=== PATIENT | female | born 2000 | race Two or more races ===

== ENCOUNTER 2024-05-22 21:53 | Inpatient (IN) | payer MEDICAID, OTHER ==
[~2024-05-22] VITALS: Ht 152.4 cm; Wt 63.1 kg
--- NOTE | 2024-05-22 22:15 | ED.PDOC ---
GI ASSESSMENT HPI Comments A 24 year old female presents to the ED with a chief complaint of RLQ pain onset today. Patient states she woke up today experiencing RLQ pain as well as nausea, fever. She noticed pain worsens with movement, rates it 9/10. Denies any past medical history as well as headache, chest pain, shortness of breath, vomiting, diarrhea, constipation, dysuria, hematuria. No other symptoms or modifying factors present at this time. Patient was febrile and tachycardic at arrival. Chief Complaint: Abdominal Pain Time Seen by MD: 22:10 Reviewed Notes: Nurses Notes, Medications, Allergies Allergies: Coded Allergies: No Known Drug Allergy (Verified Allergy, Unknown, 05/22/24) Information Source: Patient Mode of Arrival: Ambulatory Timing: Hours Duration: Since onset Prehospital treatment: None Quality: Other Severity: Moderate Recent: None Recent Hx of: None Pain Location: RLQ Modifying Factors: Movement Associated sign and symptoms: Nausea, Abdominal Pain (RLQ), Fever Past Medical History PAST MEDICAL HISTORY: Denies Surgical History: Denies all surgeries AERIAL APPLICATOR PILOT History: No Pertinent AERIAL APPLICATOR PILOT History Family History Family History: Reviewed,noncontributory to illness, No family hx of Cancer, No family hx of DM, No family hx of Heart luna, No family hx of HTN, No family hx ofKidney luna, No family hx of Liver luna, No family hx of Lung luna, No family hx of Stroke Social History Smoker: Non-Smoker Alcohol: Denies ETOH Use Drugs: Denies Drug Use Lives In: Home Constitutional: reports: fever; denies: chills, diaphoresis, fatigue, malaise, sweats, weakness, others EENTM: denies: blurred vision, double vision, ear bleeding, ear discharge, ear drainage, ear pain, ear ringing, eye pain, eye redness, hearing loss, mouth pain, mouth swelling, nasal discharge, nose bleeding, nose congestion, nose pain, photophobia, tearing, throat pain, throat swelling, voice changes, others Respiratory: denies: cough, hemoptysis, orthopnea, SOB at rest, shortness of breath, SOB with excertion, stridor, wheezing, others Cardiovascular: denies: chest pain, dizzy spells, diaphoresis, Dyspnea on exertion, edema, irregular heart beat, left arm pain, lightheadedness, palpitations, PND, syncope, others Gastrointestinal: reports: abdominal pain (RLQ), nausea; denies: abdomen distended, blood streaked bowels, constipated, diarrhea, dysphagia, difficulty swallowing, hematemesis, melena, poor appetite, poor fluid intake, rectal blee ding, rectal pain, vomiting, others Genitourinary: denies: abnormal vagina bleeding, burning, dyspareunia, dysuria, flank pain, frequency, hematuria, incontinence, pain, , vagina discharge, urgency, others Neurological: denies: dizziness, fainting, headache, left sided numbness, left sided weakness, numbness, paresthesia, pre-existing deficit, right sided numbness, right sided weakness, seizure, speech problems, tingling, tremors, weakness, others Musculoskeletal: denies: back pain, gout, joint pain, joint swelling, muscle pain, muscle stiffness, neck pain, others Integumetry: denies: bruises, change in color, change in hair/nails, dryness, laceration, lesions, lumps, rash, wounds, others Allergic/Immunocompromised: denies: Difficulty Healing, Frequent Infections, Hives, Itching, others Hematologic/Lymphatic: denies: anemia, blood clots, easy bleeding, easy bruising, swollen glands, others Endocrine: denies: excessive hunger, excessive sweating, excessive thirst, excessive urination, flushing, intolerance to cold, intolerance to heat, unexplained weight gain, unexplained weight loss, others Psychiatric: denies: anxiety, bipolar disorder, depression, hopeless, panic disorder, schizophrenia, sleepless, suicidal, others All Other Systems: Reviewed and Negative Physical Exam General Appearance: Moderate Distress (Patient moderately ill 24-year-old female.), Normal HEENT: Normal ENT Inspection, Pharynx Normal, TMs Normal Neck: Full Range of Motion, Non-Tender, Normal, Normal Inspection Respiratory: Chest Non-Tender, Lungs Clear, No Accessory Muscle Use, No Respiratory Distress, Normal Breath Sounds Cardiovascular: No Edema, No JVD, No Murmur, No Gallop, Normal Peripheral Pulses, Regular Rate/Rhythm Breast Exam: Deferred Gastrointestinal: Other (Patient displays diffuse right lower quadrant tenderness without definitive rebound. Abdomen was mildly rigid. No signs of trauma.) Genitalia: Deferred Pelvic: Deferred Rectal: Deferred Extremities: No calf tenderness, Normal capillary refill, Normal inspection, Normal range of motion, Non-tender, No pedal edema Neurologic: Alert, public records officer II-XII nml as Tested, No Motor Deficits, Normal Affect, Normal Mood, No Sensory Deficits Cerebellar Function: Normal Reflexes: Normal Skin: Dry, Normal Color, Warm Lymphatic: No Adenopathy Was a procedure done? Was a procedure done?: No GI differential Dx Differential Diagnosis: Threatened , Bowel Obstruction, Cholangitis, Cholecystitis, Gastritis/PUD, Gastroenteritis, Other (Appendicitis) X-Ray, Labs, Meds, VS Vital Signs Date Time Temp Pulse Resp B/P (MAP) Pulse Ox O2 Delivery O2 Flow Rate FiO2 05/22/24 23:15 109 20 109/67 05/22/24 22:45 124 20 116/65 05/22/24 22:30 124 20 98 Room Air 05/22/24 22:30 100.6 124 20 116/65 (82) 98 100.6 05/22/24 22:06 102.3 137 18 119/76 (90) 97 Lab Test 05/22/24 22:26 05/22/24 22:19 Range/Units Urine Color Light-yellow Yellow Urine Clarity Clear Clear Urine pH 7.0 5.0-9.0 Urine Specific [place] 1.022 1.001-1.035 Urine Protein Negative Negative Urine Ketones 1+ H Negative Urine Blood Negative Negative /uL Urine Nitrite Negative Negative Urine Bilirubin Negative Negative Urine Urobilinogen Normal Negative mg/dL Urine Leukocyte Esterase 1+ Negative /uL Urine RBC 2 0 - 4 /hpf Urine WBC 6 0 - 5 /hpf Urine Squamous Epithelial Cells Few <5 /hpf Urine Bacteria None seen None Seen /hpf Urine Glucose Normal Normal mg/dL White Blood Count 21.3 H 4.4-10.8 10^3/uL Red Blood Count 4.49 4.0-5.20 10^6/uL Hemoglobin 14.0 12.2-16.2 g/dL Hematocrit 41.5 36.0-46.0 % Mean Corpuscular Volume 92.5 80.0-100.0 fL Mean Corpuscular Hemoglobin 31.2 28.0-32.0 pg Mean Corpuscular Hemoglobin Concent 33.7 32.0-36.0 g/dL Red Cell Distribution Width 12.5 11.8-14.3 % Platelet Count 254 140-450 10^3/uL Mean Platelet Volume 8.5 6.9-10.8 fL Neutrophils (%) (Auto) 90.1 H 37.0-80.0 % Lymphocytes (%) (Auto) 6.1 L 10.0-50.0 % Monocytes (%) (Auto) 3.6 0.0-12.0 % Eosinophils (%) (Auto) 0.1 0.0-7.0 % Basophils (%) (Auto) 0.1 0.0-2.0 % Neutrophils # (Auto) 19.2 H 1.6-8.6 10 ^3/uL Lymphocytes # (Auto) 1.3 0.4-5.4 10 ^3/uL Monocytes # (Auto) 0.8 0-1.3 10 ^3/uL Eosinophils # (Auto) 0 0-0.8 10 ^3/uL Basophils # (Auto) 0 0-0.2 10 ^3/uL Nucleated Red Blood Cells 0.0 % Sodium Level 139 136-145 mmol/L Potassium Level 3.6 3.5-5.1 mmol/L Chloride Level 105 98-107 mmol/L Carbon Dioxide Level 24 20-31 mmol/L Anion Gap 10 5-15 Blood Urea Nitrogen 10 9-23 mg/dL Creatinine 0.68 0.550-1.02 mg/dL Glomerular Filtration Rate Calc 126 >90 mL/min BUN/Creatinine Ratio 14.7 10.0-20.0 Serum Glucose 110 H 74-106 mg/dL Lactic Acid Level 1.6 0.4-2.0 mmol/L Calcium Level 10.1 8.7-10.4 mg/dL Total Bilirubin 1.3 H 0.2-1.0 mg/dL Aspartate Amino Transferase (AST) 21 13-40 U/L Alanine Aminotransferase (ALT) 18 7-40 U/L Alkaline Phosphatase 82 46-116 U/L Total Protein 7.6 5.7-8.2 g/dL Albumin 4.7 3.2-4.8 g/dL Lipase 29 12-53 U/L Current Medications Medications (Trade) Dose Ordered Sig/Timothy Route Start Time Stop Time Status Last Admin Ondansetron HCl (Zofran Po) 4 mg ONCE ONCE PO 05/22/24 22:15 05/22/24 22:16 DC 05/22/24 22:46 Morphine Sulfate 4 mg ONCE ONCE IM 05/22/24 22:15 05/22/24 22:16 DC 05/22/24 22:45 Nitrofurantoin Macrocrystals (Macrobid) 100 mg ONCE ONCE PO 05/23/24 00:45 05/23/24 00:46 DC 05/23/24 01:[address] [address] Ph: [phone] DIAGNOSTIC IMAGING Diagnostic Imaging Report : [id number] Signed PATIENT: MICHAEL OCAMPONACCT: [id number] UNIT: [id number] : 2000 LOC: ER ROOM / BED: / AGE / SEX: 24 / F ADM STATUS: REG ER SERVICE 11 ORDERING PHYSICIAN: BINTA LAYTON PAC PROCEDURE(s): ABPL - CT AB PEL WO CON-NO ORAL OR IV REASON: Right lower quadrant pain ORDER NUMBER(s): [id number], ACCESSION NUMBER(s): [id number] Exam: CT CT AB PEL WO CON-NO ORAL OR IV History: Right lower quadrant pain Comparison Study: None available at time of dictation. TECHNIQUE: Multidetector CT of the abdomen was performed from lung bases to pubic symphysis. Imaging was performed without IV contrast. Axial, coronal and sagittal multiplanar reformats were obtained from the axial data set by the technologist. Radiation Dose Information: CT Dose: CTDI volume is 5.53 mGy. Dose-length product is 301.99 mGy*cm FINDINGS: Evaluation of solid organs is limited due to lack of intravenous contrast use. Findings: Lung Bases: No acute or significant lung base finding. Normal heart size. No pleural or pericardial effusion. Liver: The liver is normal in size. No focal lesions. Gallbladder and Biliary Tree: Unremarkable Spleen: Unremarkable Pancreas: The pancreas is grossly normal in appearance. Adrenal Glands: Unremarkable Kidneys: Kidneys are grossly normal without calculi or hydronephrosis. Bladder: Grossly unremarkable for degree of distention. Bowel: The stomach is grossly normal in appearance. Small bowel and colon are normal in caliber and distribution. The appendix is not visualized; however, no secondary findings of acute appendicitis identified. Ascites: Absent Lymphadenopathy: No mesenteric, retroperitoneal or periportal lymphadenopathy. Abdominal Wall and Mesentery: Unremarkable. Vasculature: The visualized abdominal aorta is normal in size and caliber. Evaluation of abdominal and pelvic vessels is limited due to lack of intravenous contrast. Pelvic Organs: Unremarkable Musculoskeletal: No aggressive focal bony lesions, acute fractures or dislocation. Soft tissues: Unremarkable IMPRESSION: 1. No calcified gallstones. 2. No nephrolithiasis or hydronephrosis. 3. No free air or free fluid. 4. Appendix not definitively identified. 5. Radiation optimization: All CT scans at this facility use at least one of these dose optimization techniques: automated exposure control mA and/or kV adjustment per patient size (includes targeted exams where dose is matched to clinical indication) or iterative reconstruction. HS:Y ATED BY: TRESA DUBON Jr., DO DICTATED DATE/TIME: 05/23/2420 SIGNED BY: TRESA DUBON Jr., SIGNED DATE/TIME: 05/23/2420 CC: X-Ray, Labs, Meds, VS Comment All studies performed the ED were evaluated by me personally. Serum laboratories [place] [id number]. Urinalysis confirmed what appears to be a UTI, but I am not sure it is the source of the elevated white blood cell count. CT of the abdomen could not visualize the appendix nor could ultrasound. Patient will be admitted for management of her right lower quadrant pain concerns that she may be at the beginning of a developing appendicitis. Time of 1ST Reevaluation: 02:03 Reevaluation 1ST: Improved Consultation: PCP Patient Education/Counseling: Diagnosis, Treatment Family Education/Counseling: Diagnosis, Treatment Additional Information I reviewed the following notes from patient's past medical encounters: The following tests were ordered, and results were reviewed by me: CBC, CMP, LIPASE, UA, LA W/ REFLEX, CT ABD PEL WO CONTRAST I reviewed and agreed with the following test results read by other providers: CT ABD PEL WO CONTRAST I discussed treatment and results with medical personnel and: patient Departure 1 Departure Time of Disposition: 02:04 Impression: Primary Impression: Leukocytosis Additional Impressions: UTI (urinary tract infection) Abdominal pain Disposition: ADMITTED INPATIENT Condition: Stable Discharged With: Self, Relative Critical Care Note Critical Care Time?: No Stability Stability form required: No Heart Score Heart Score: Heart Score Response (Comments) Value History N/A 0 EKG N/A 0 Age N/A 0 Risk Factors N/A 0 Troponin N/A 0 Total 0 I personally scribed for SAMANTHA ALARCON MD ([email or web address]) on 05/22/24 at 22:15. Electronically submitted by Kandi العراقي ([email or web address]). I personally scribed for SAMANTHA ALARCON MD ([email or web address]) on 05/22/24 at 22:17. Electronically submitted by Kandi العراقي ([email or web address]). I personally scribed for SAMANTHA ALARCON MD ([email or web address]) on 05/22/24 at 22:43. Electronically submitted by Kandi العراقي ([email or web address]). I personally scribed for ASMANTHA ALARCON MD ([email or web address]) on 05/22/24 at 22:59. Electronically submitted by Kandi العراقي ([email or web address]). I personally scribed for SAMANTHA ALARCON MD ([email or web address]) on 05/23/24 at 00:20. Electronically submitted by Kandi العراقي ([email or web address]). I personally scribed for SAMANTHA ALARCON MD ([email or web address]) on 05/23/24 at 00:29. Electronically submitted by Kandi العراقي ([email or web address]). SAMANTHA ALARCON MD May 22, 2024 22:15 BINTA LAYTON May 23, 2024 02:05
[2024-05-22 22:27] LABS: Urine Bacteria None Seen /hpf (None Seen)
[2024-05-22 22:38] LABS: Basophils # (auto) 0 10 ^3/uL (0-0.2); Basophils % (auto) 0.1 % (0.0-2.0); Eosinophils # (auto) 0 10 ^3/uL (0-0.8); Eosinophils % (auto) 0.1 % (0.0-7.0); Hematocrit 41.5 % (36.0-46.0); Lymphocytes # (auto) 1.3 10 ^3/uL (0.4-5.4); Lymphocytes % (auto) 6.1 % (10.0-50.0); Mean Corpuscular Hemoglobin 31.2 pg (28.0-32.0); Mean Corpuscular Hgb Conc. 33.7 g/dL (32.0-36.0); Mean Corpuscular Volume 92.5 fL (80.0-100.0); Monocytes # (auto) 0.8 10 ^3/uL (0-1.3); Monocytes % (auto) 3.6 % (0.0-12.0); Neutrophils # (auto) 19.2 10 ^3/uL (1.6-8.6); Neutrophils % (auto) 90.1 % (37.0-80.0); Platelet Count (auto) 254 10^3/uL (140-450); Red Blood Cells 4.49 10^6/uL (4.0-5.20); Red Cell Distribution Width 12.5 % (11.8-14.3); White Blood Cell 21.3 10^3/uL (4.4-10.8)
[2024-05-22 22:39] LABS: Urine Blood Negative /uL (Negative); Urine Clarity Clear (Clear); Urine Color Light-Yellow (Yellow); Urine Protein, UAD Negative (Negative); Urine Specific Gravity 1.022 (1.001-1.035); Urine Squamous Epithelial Cell FEW /hpf (<5); Urine Urobilinogen Normal (Negative); Urine WBC 6 /hpf (0 - 5)
[2024-05-22] MEDS: MORPHINE SULFATE INJ 2 MG/ml SYRG IM ONE (22:45)
[2024-05-22] MEDS: ONDANSETRON ODT 4 MG TAB PO ONE (22:46)
[2024-05-22 22:55] LABS: Alanine Aminotransferase 18 U/L (7-40); Alkaline Phosphatase 82 U/L (46-116); Calcium 10.1 mg/dL (8.7-10.4); Carbon Dioxide 24 mmol/L (20-31); Chloride 105 mmol/L (98-107)
[2024-05-22 22:56] LABS: Albumin 4.7 g/dL (3.2-4.8); Anion Gap 10 (5-15); Aspartate Aminotransferase 21 U/L (13-40); BUN/Creatinine Ratio 14.7 (10.0-20.0); Bilirubin, Total 1.3 mg/dL (0.2-1.0); Blood Urea Nitrogen 10 mg/dL (9-23); Glucose 110 mg/dL (74-106); Potassium 3.6 mmol/L (3.5-5.1); Sodium 139 mmol/L (136-145); Total Protein 7.6 g/dL (5.7-8.2)
[2024-05-22 23:13] LABS: Lipase 29 U/L (12-53)
--- NOTE | 2024-05-23 00:23 | DVH ---
Exam: CT CT AB PEL WO CON-NO ORAL OR IV History: Right lower quadrant pain Comparison Study: None available at time of dictation. TECHNIQUE: Multidetector CT of the abdomen was performed from lung bases to pubic symphysis. Imaging was performed without IV contrast. Axial, coronal and sagittal multiplanar reformats were obtained fr om the axial data set by the technologist. Radiation Dose Information: CT Dose: CTDI volume is 5.53 mGy. Dose-length product is 301.99 mGy*cm FINDINGS: Evaluation of solid organs is limited due to lack of intravenous contrast use. Findings: Lung Bases: No acute or significant lung base finding. Normal heart size. No pleural or pericardial effusion. Liver: The liver is normal in size. No focal lesions. Gallbladder and Biliary Tree: Unremarkable Spleen: Unremarkable Pancreas: The pancreas is grossly normal in appearance. Adrenal Glands: Unremarkable Kidneys: Kidneys are grossly normal without calculi or hydronephrosis. Bladder: Grossly unremarkable for degree of distention. Bowel: The stomach is grossly normal in appearance. Small bowel and colon are normal in caliber and d istribution. The appendix is not visualized; however, no secondary findings of acute appendicitis id entified. Ascites: Absent Lymphadenopathy: No mesenteric, retroperitoneal or periportal lymphadenopathy. Abdominal Wall and Mesentery: Unremarkable. Vasculature: The visualized abdominal aorta is normal in size and caliber. Evaluation of abdominal a nd pelvic vessels is limited due to lack of intravenous contrast. Pelvic Organs: Unremarkable Musculoskeletal: No aggressive focal bony lesions, acute fractures or dislocation. Soft tissues: Unremarkable IMPRESSION: 1. No calcified gallstones. 2. No nephrolithiasis or hydronephrosis. 3. No free air or free fluid. 4. Appendix not definitively identified. 5. Radiation optimization: All CT scans at this facility use at least one of these dose optimization techniques: automated exposure control mA and/or kV adjustment per patient size (includes targeted e xams where dose is matched to clinical indication) or iterative reconstruction. HS:Y
[2024-05-23] MEDS: NITROFURANTOIN 100 mg CAP PO ONE (01:35)
--- NOTE | 2024-05-23 01:40 | DVH ---
ABDOMINAL ULTRASOUND CLINICAL HISTORY: Right lower quadrant TECHNIQUE: Multiple grayscale and color Doppler ultrasound images were obtained of the abdomen. WID: COMPARISON: CT abdomen pelvis from same day Findings/IMPRESSION: Appendix not visualized. No fluid collection or tenderness in the right lower quadrant.
[2024-05-23] MEDS ORDERED: MORPHINE SULFATE INJ 2 MG/ml SYRG IV PRN (04:30)
--- NOTE | 2024-05-23 04:44 | DVHHPRES ---
History of Present Illness Resident Creating Document: RAMYARICHCHRISTOS RESIDENT History of Present Illness Patient is a 24-year-old female with no significant past medical history came to the ED with a chief complaint of right lower quadrant pain since the morning. Patient reports sudden onset right lower quadrant pain, constant, severe 9/10 on intensity, nonradiating associated with nausea but no vomiting. Patient does not report having diarrhea. Patient has a last menstrual period 2 weeks ago reports to be currently in a relationship with a single partner. On admission patient had elevated temperature at 102.3 F, tachycardia with an elevated red blood cell count with a left shift. Beta HCG 1.5. Past Medical history: None Past surgical history: None Social history: Patient denies smoking, alcohol, drug use and is in a relationship with male partner, does not use contraceptives Home medications: None Review of Systems Review of Systems Patient seen and examined at bedside Reports right lower quadrant pain, moderate in intensity Has mild nausea, denies vomiting, diarrhea Denies dysuria, increased frequency or nocturia Denies intermenstrual vaginal bleeding or discharge Allergies: Coded Allergies: No Known Drug Allergy (Verified Allergy, Unknown, 05/22/24) Medications Current Medications Medications Dose Ordered Sig/Timothy Route Start Time Stop Time Status Last Admin Dose Admin Piperacillin Sod/ Tazobactam Sod 100 ml @ 25 mls/hr Q8HR IV 05/23/24 06:00 UNV Morphine Sulfate 2 mg Q4HPRN PRN IV 05/23/24 04:30 Ondansetron HCl 4 mg Q6HPRN PRN IV 05/23/24 04:30 Exam Vital Signs Vital Signs Date Time Temp Pulse Resp B/P (MAP) Pulse Ox O2 Delivery O2 Flow Rate FiO2 05/23/24 04:00 Room Air* 0 21 05/22/24 23:15 109 20 109/67 05/22/24 22:30 98 05/22/24 22:30 100.6 100.6 Exam Physical Examination Constitutional: Alert and oriented to time, place and person and appears to be in mild distress because of the abdominal pain. Gen - no pallor, no icterus, no cyanosis, no clubbing, no LAD, no edema . Skin - Patients skin is warm and dry. HEENT - normocephalic, atraumatic, Dry mucous membranes. Neck - full ROM, no LAD, no JVD Pulmonary - B/L vesicular breath sounds. no crackles , no wheezing, no stridor. cardiovascular - normal S1,S2 heard. no murmurs heard. peripheral pulses normal radial 2+, pedal 2+. GI - patient had tenderness at the McBurney's point. No guarding or rebound tenderness. no hepatospleenomegaly. Bowel sounds normoactive Rovsing sign negative, psoas negative, obturator sign negative No CVA tenderness Neurological - Bilateral upper extremity strength 5/5, bilateral lower extremity strength 5/5, no facial droop, normal speech, no tremor, no sensory deficiets. Labs/Xrays Labs Test 05/22/24 22:26 05/22/24 22:19 Range/Units Urine Color Light-yellow Yellow Urine Clarity Clear Clear Urine pH 7.0 5.0-9.0 Urine Specific [place] 1.022 1.001-1.035 Urine Protein Negative Negative Urine Ketones 1+ H Negative Urine Blood Negative Negative /uL Urine Nitrite Negative Negative Urine Bilirubin Negative Negative Urine Urobilinogen Normal Negative mg/dL Urine Leukocyte Esterase 1+ Negative /uL Urine RBC 2 0 - 4 /hpf Urine WBC 6 0 - 5 /hpf Urine Squamous Epithelial Cells Few <5 /hpf Urine Bacteria None seen None Seen /hpf Urine Glucose Normal Normal mg/dL White Blood Count 21.3 H 4.4-10.8 10^3/uL Red Blood Count 4.49 4.0-5.20 10^6/uL Hemoglobin 14.0 12.2-16.2 g/dL Hematocrit 41.5 36.0-46.0 % Mean Corpuscular Volume 92.5 80.0-100.0 fL Mean Corpuscular Hemoglobin 31.2 28.0-32.0 pg Mean Corpuscular Hemoglobin Concent 33.7 32.0-36.0 g/dL Red Cell Distribution Width 12.5 11.8-14.3 % Platelet Count 254 140-450 10^3/uL Mean Platelet Volume 8.5 6.9-10.8 fL Neutrophils (%) (Auto) 90.1 H 37.0-80.0 % Lymphocytes (%) (Auto) 6.1 L 10.0-50.0 % Monocytes (%) (Auto) 3.6 0.0-12.0 % Eosinophils (%) (Auto) 0.1 0.0-7.0 % Basophils (%) (Auto) 0.1 0.0-2.0 % Neutrophils # (Auto) 19.2 H 1.6-8.6 10 ^3/uL Lymphocytes # (Auto) 1.3 0.4-5.4 10 ^3/uL Monocytes # (Auto) 0.8 0-1.3 10 ^3/uL Eosinophils # (Auto) 0 0-0.8 10 ^3/uL Basophils # (Auto) 0 0-0.2 10 ^3/uL Nucleated Red Blood Cells 0.0 % Sodium Level 139 136-145 mmol/L Potassium Level 3.6 3.5-5.1 mmol/L Chloride Level 105 98-107 mmol/L Carbon Dioxide Level 24 20-31 mmol/L Anion Gap 10 5-15 Blood Urea Nitrogen 10 9-23 mg/dL Creatinine 0.68 0.550-1.02 mg/dL Glomerular Filtration Rate Calc 126 >90 mL/min BUN/Creatinine Ratio 14.7 10.0-20.0 Serum Glucose 110 H 74-106 mg/dL Lactic Acid Level 1.6 0.4-2.0 mmol/L Calcium Level 10.1 8.7-10.4 mg/dL Total Bilirubin 1.3 H 0.2-1.0 mg/dL Aspartate Amino Transferase (AST) 21 13-40 U/L Alanine Aminotransferase (ALT) 18 7-40 U/L Alkaline Phosphatase 82 46-116 U/L Total Protein 7.6 5.7-8.2 g/dL Albumin 4.7 3.2-4.8 g/dL Lipase 29 12-53 U/L Assessment/Plan Assessment/Plan Assessment # sepsis likely due to appendicitis # acute abdominal pain # ? Acute appendicitis # ? PID # ? Ectopic ?Ovarian torsion - CT abdomen pelvis shows no calcified gallstones, no nephrolithiasis or hydronephrosis, no free air or free fluid, appendix not definitely identified however no secondary findings of acute appendicitis - the appendix ultrasound revealed no visualization of appendix, no fluid collection or tenderness in the right lower quadrant Plan - pelvic ultrasound pending - on Zosyn 3.375 g IV q.8 hours - on IV fluids @ 150 mL/hour - OBGYN consulted - surgery consulted - monitor CBC and BMP - patient NPO - morphine 2 mg IV for pain and acetaminophen 650 mg 4 temperature greater than 100.4 degree F Goals of care discussed with the patient and family for over 27 minutes. Full code Plan discussed with Dr. Godoy Plan discussed with: Patient, Other (mother, boyfriend) My Orders Orders - PATRICIA BUI Procedure Category Date Status Time Test, Urine LAB 05/23/24 Logged 04:03 Admit ADMIT 05/23/24 Transmitted 04:29 Complete Blood Count LAB 05/23/24 Logged 04:29 Comprehensive LAB 05/23/24 Logged Metabolic Panel 04:29 Sodium Chloride 0.9% PHA 05/23/24 In Process 04:30 Drug Screen LAB 05/23/24 Logged 04:29 Piperacillin-Tazob PHA 05/23/24 Pending 3.375gm (Zosyn 3.375g 06:00 Beta Hcg, Quantitative LAB 05/23/24 Logged 04:29 Morphine Sulfate PHA 05/23/24 In Process Injection 04:30 Npo (Nothing By DIET 05/23/24 Transmitted Mouth) Diet Breakfast Ondansetron Hcl PHA 05/23/24 In Process (Zofran) 04:30 * Surgical Consult CONS 05/23/24 Transmitted PTPTT LAB 05/23/24 Logged 04:37 Lactic Acid W/ Reflex LAB 05/23/24 Logged Order 04:38 Date of Service: May 23, 2024 Billing Provider: CLAUDINE GODOY MD Common Visit Codes: [id number] INP/OBS CARE (HIGH) PATRICIA BUI RESIDENT May 23, 2024 04:44 CLAUDINE GODOY MD May 23, 2024 11:52
[2024-05-23] MEDS: SODIUM CHLORIDE 0.9% 1,000 ML IV ONE ×2 (04:54→06:45)
[2024-05-23 04:58] LABS: Basophils # (auto) 0 10 ^3/uL (0-0.2); Basophils % (auto) 0.1 % (0.0-2.0); Eosinophils # (auto) 0 10 ^3/uL (0-0.8); Hematocrit 40.7 % (36.0-46.0); Hemoglobin 13.7 g/dL (12.2-16.2); Lymphocytes # (auto) 1.1 10 ^3/uL (0.4-5.4); Lymphocytes % (auto) 5.4 % (10.0-50.0); Mean Corpuscular Hemoglobin 31.4 pg (28.0-32.0); Mean Corpuscular Hgb Conc. 33.7 g/dL (32.0-36.0); Monocytes # (auto) 0.8 10 ^3/uL (0-1.3); Monocytes % (auto) 4.1 % (0.0-12.0); Neutrophils # (auto) 18.9 10 ^3/uL (1.6-8.6); Neutrophils % (auto) 90.4 % (37.0-80.0); Platelet Count (auto) 210 10^3/uL (140-450); Red Blood Cells 4.38 10^6/uL (4.0-5.20); Red Cell Distribution Width 12.7 % (11.8-14.3); White Blood Cell 20.9 10^3/uL (4.4-10.8)
[2024-05-23 05:11] LABS: INR 1.23 (0.9-1.15); Partial Thromboplastin Time 30.4 SEC (24.5-34.5); Prothrombin Time 12.8 sec (9.3-11.8)
[2024-05-23 05:14] LABS: Alanine Aminotransferase 16 U/L (7-40); Albumin 4.4 g/dL (3.2-4.8); Alkaline Phosphatase 69 U/L (46-116); Anion Gap 10 (5-15); Aspartate Aminotransferase 15 U/L (13-40); BUN/Creatinine Ratio 13.8 (10.0-20.0); Calcium 9.7 mg/dL (8.7-10.4); Carbon Dioxide 22 mmol/L (20-31); Glucose 100 mg/dL (74-106); Potassium 3.6 mmol/L (3.5-5.1); Sodium 139 mmol/L (136-145); Total Protein 7.1 g/dL (5.7-8.2)
[2024-05-23 05:31] LABS: Bilirubin, Total 1.5 mg/dL (0.2-1.0); Blood Urea Nitrogen 8 mg/dL (9-23); Chloride 107 mmol/L (98-107)
[2024-05-23] MEDS: PIPERACILLIN-TAZOB 3.375GM 100 ML IV SCH (05:41)
[2024-05-23] MEDS ORDERED: ACETAMINOPHEN 325 MG TAB PO PRN (06:45)
--- NOTE | 2024-05-23 07:06 | DVH ---
INDICATION: RLQ pain, r/o ectopic , ovarian cyst , ovarian tors TECHNIQUE: Multiple real-time grayscale transabdominal sonographic images along with color and duplex Doppler of the uterus and ovaries were obtained. COMPARISON: None FINDINGS: The uterus measures 6.2 x 4.8 x 2.6 cm. The uterus is homogenous in echotexture. The endome trial stripe measures 1.1 cm. The right ovary measures 2.9 x 1.6 x 2.5 cm. The left ovary measures 5.0 x 4.3 x 3.7 cm. Multiple follicles the largest measuring 1.8 x 1.5 x 1.2 cm. Subsequent color and duplex Doppler interrogation of the ovaries demonstrated symmetric vascular flow to both ovaries. No free fluid in the cul-de-sac. IMPRESSION: 1. Left ovary appears enlarged with multiple follicles measuring up to 1.8 cm. 2. No evidence of ovarian torsion.
--- NOTE | 2024-05-23 08:31 | DVHINCON2 ---
Date of service: May 23, 2024 Allergies: Coded Allergies: No Known Drug Allergy (Verified Allergy, Unknown, 05/22/24) Current Medications Current Medications Medications (Trade) Dose Ordered Sig/Timothy Route PRN Reason Start Time Stop Time Status Last Admin Piperacillin Sod/ Tazobactam Sod 100 ml @ 25 mls/hr Q8HR IV 05/23/24 06:00 05/23/24 07:57 DC 05/23/24 05:41 Morphine Sulfate 2 mg Q4HPRN PRN IV SEVERE PAIN (7-10 PAIN SCALE) 05/23/24 04:30 Ondansetron HCl (Zofran) 4 mg Q6HPRN PRN IV NAUSEA / VOMITING 05/23/24 04:30 Acetaminophen (Tylenol Tablet) 650 mg Q4HP PRN PO PAIN SCALE 1-3 OR TEMP>100.4 05/23/24 06:45 Metronidazole 100 ml @ 100 mls/hr Q8HR IV 05/23/24 14:00 UNV Ciprofloxacin 200 ml @ 200 mls/hr Q12HR IV 05/23/24 10:00 UNV Vital Signs Vital Signs Date Time Temp Pulse Resp B/P (MAP) Pulse Ox O2 Delivery O2 Flow Rate FiO2 05/23/24 07:18 98.5 100 16 101/52 (68) 100 98.5 05/23/24 04:00 Room Air* 0 21 Labs/Diagnostic Data Labs Test 05/23/24 04:45 05/22/24 22:26 05/22/24 22:19 Range/Units White Blood Count 20.9 H 4.4-10.8 10^3/uL Red Blood Count 4.38 4.0-5.20 10^6/uL Hemoglobin 13.7 12.2-16.2 g/dL Hematocrit 40.7 36.0-46.0 % Mean Corpuscular Volume 93.0 80.0-100.0 fL Mean Corpuscular Hemoglobin 31.4 28.0-32.0 pg Mean Corpuscular Hemoglobin Concent 33.7 32.0-36.0 g/dL Red Cell Distribution Width 12.7 11.8-14.3 % Platelet Count 210 140-450 10^3/uL Mean Platelet Volume 8.4 6.9-10.8 fL Neutrophils (%) (Auto) 90.4 H 37.0-80.0 % Lymphocytes (%) (Auto) 5.4 L 10.0-50.0 % Monocytes (%) (Auto) 4.1 0.0-12.0 % Eosinophils (%) (Auto) 0.0 0.0-7.0 % Basophils (%) (Auto) 0.1 0.0-2.0 % Neutrophils # (Auto) 18.9 H 1.6-8.6 10 ^3/uL Lymphocytes # (Auto) 1.1 0.4-5.4 10 ^3/uL Monocytes # (Auto) 0.8 0-1.3 10 ^3/uL Eosinophils # (Auto) 0 0-0.8 10 ^3/uL Basophils # (Auto) 0 0-0.2 10 ^3/uL Nucleated Red Blood Cells 0.0 % Prothrombin Time 12.8 H 9.3-11.8 sec Prothrombin Time INR 1.23 H 0.9-1.15 Activated Partial Thromboplast Time 30.4 24.5-34.5 SEC Sodium Level 139 136-145 mmol/L Potassium Level 3.6 3.5-5.1 mmol/L Chloride Level 107 98-107 mmol/L Carbon Dioxide Level 22 20-31 mmol/L Anion Gap 10 5-15 Blood Urea Nitrogen 8 L 9-23 mg/dL Creatinine 0.58 0.550-1.02 mg/dL Glomerular Filtration Rate Calc 131 >90 mL/min BUN/Creatinine Ratio 13.8 10.0-20.0 Serum Glucose 100 74-106 mg/dL Lactic Acid Level 0.9 0.4-2.0 mmol/L Calcium Level 9.7 8.7-10.4 mg/dL Total Bilirubin 1.5 H 0.2-1.0 mg/dL Aspartate Amino Transferase (AST) 15 13-40 U/L Alanine Aminotransferase (ALT) 16 7-40 U/L Alkaline Phosphatase 69 46-116 U/L Total Protein 7.1 5.7-8.2 g/dL Albumin 4.4 3.2-4.8 g/dL Beta HCG, Quantitative 1.5 1.5-4.2 mIU/mL Urine Color Light-yellow Yellow Urine Clarity Clear Clear Urine pH 7.0 5.0-9.0 Urine Specific [place] 1.022 1.001-1.035 Urine Protein Negative Negative Urine Ketones 1+ H Negative Urine Blood Negative Negative /uL Urine Nitrite Negative Negative Urine Bilirubin Negative Negative Urine Urobilinogen Normal Negative mg/dL Urine Leukocyte Esterase 1+ Negative /uL Urine RBC 2 0 - 4 /hpf Urine WBC 6 0 - 5 /hpf Urine Squamous Epithelial Cells Few <5 /hpf Urine Bacteria None seen None Seen /hpf Urine Glucose Normal Normal mg/dL Lipase 29 12-53 U/L Assessment HAS RIGHT LOWER QUADRANT ABDOMINAL PAIN AND TENDERNESS, NO REBOUND, NO GUARDING, WBC 21,000, FEBRILE, APPENDIX NON VISUALIZED ON CT SCAN NOR ON TWO ULTRASOUNDS, SUSPECT UTI VS PID, DOUBT APPENDICITIS, NEEDS TO BE ADMITTED AND TREATED WITH ANTIBIOTICS, KEEP NPO, POSSIBLY REPEAT ULTRASOUND IN 24 HOURS. Plan discussed with: Patient TARIK GRANT MD May 23, 2024 08:31
[2024-05-23 09:16] VITALS: PULSE 84; RESP 16; O2SAT 97
[2024-05-23 09:36] LABS: Amphetamine Screen, Urine Neg (NEGATIVE); Barbiturate Scree,Urine Neg (NEGATIVE); Benzodiazephine Screen, Urine Neg (NEGATIVE); Cannabinoid Screen, Urine Neg (NEGATIVE); Cocaine Screen, Urine Neg (NEGATIVE); Opiate Scree,Urine Pos (NEGATIVE); Phencyclidine Screen, Urine Neg (NEGATIVE)
[2024-05-23] MEDS: CIPROFLOXACIN 400MG/200ML 200 ML IV SCH (10:03)
[2024-05-23] MEDS: ONDANSETRON HCL 4 MG/2 ML VIAL IV PRN (10:54)
[2024-05-23] MEDS: metroNIDAZOLE 500MG/100ML 100 ML IV SCH (14:10)
[2024-05-23 16:35] VITALS: RESP 18; O2SAT 99
[2024-05-23 17:13] VITALS: BP 105/43; PULSE 91; RESP 18; TEMP 98.2; O2SAT 99
--- NOTE | 2024-05-23 17:29 | DVHPNRES ---
Progress Note Date Seen: May 23, 2024 Resident Creating Document: NATHEN PURI TEJINDER Has the PT tested + for MRSA If YES, has PT been informed?: No Medical Necessity Reason Pt with a Central, PICC or Fol: No Subjective Review of Systems Patient is a 24-year-old female with no significant past medical history came to the ED with a chief complaint of right lower quadrant pain since the morning. Patient reports sudden onset right lower quadrant pain, constant, severe 9/10 on intensity, nonradiating associated with nausea but no vomiting. Patient does not report having diarrhea. Patient has a last menstrual period 2 weeks ago reports to be currently in a relationship with a single partner. On admission patient had elevated temperature at 102.3 F, tachycardia with an elevated red blood cell count with a left shift. Beta HCG 1.5. Past Medical history: None Past surgical history: None Social history: Patient denies smoking, alcohol, drug use and is in a relationship with male partner, does not use contraceptives Home medications: None Today, patient seen and examined at the bedside. Patient is feeling better since admission but still complaining of abdominal pain. Patient reports: No new complaints, Feels better Changes from previous H/P or p: No Changes Objective vital signs Vital Sign Date Time Temp Pulse Resp B/P (MAP) Pulse Ox O2 Delivery O2 Flow Rate FiO2 05/23/24 17:13 98.2 91 18 105/43 (63) 99 98.2 05/23/24 16:35 Room Air* 0 21 Total Intake and Output 05/22/24 05/22/24 05/23/24 15:00 23:00 07:00 Intake Total 25 ml Balance 25 ml medications Current Medications Medications Dose Ordered Sig/Timothy Route Start Time Stop Time Status Last Admin Dose Admin Morphine Sulfate 2 mg Q4HPRN PRN IV 05/23/24 04:30 Ondansetron HCl 4 mg Q6HPRN PRN IV 05/23/24 04:30 05/23/24 10:54 4 MG Acetaminophen 650 mg Q4HP PRN PO 05/23/24 06:45 Metronidazole 100 ml @ 100 mls/hr Q8HR IV 05/23/24 14:00 05/23/24 14:10 100 MLS/HR Ciprofloxacin 200 ml @ 200 mls/hr Q12HR IV 05/23/24 10:00 05/23/24 10:03 200 MLS/HR Examination General Appearance: Alert, Oriented X3, Cooperative, No acute distress HEENT: Atraumatic, PERRLA, EOMI, Mucous membrane moist/pink Respiratory: Clear to auscultation, Normal air movement Cardiovascular: Regular rate, Normal S1, Normal S2, No murmurs, no chest wall tenderness Abdominal: Mild abdominal tenderness on the right lower quadrant Extremities: No clubbing, No cyanosis, No edema, Normal pulses, No tenderness/swelling Skin: No rashes, No breakdown, No significant lesion Neuro: Normal gait, Normal speech, Strength at 5/5 X4 ext, Normal tone, Sensation intact, Cranial nerves 3-12 NL, Reflexes 2+ Psych/Mental Status: Mental status NL, Mood NL laboratory and microbiology Laboratory Tests 05/23/24 04:45 Test 05/23/24 04:45 Range/Units Serum Glucose 100 74-106 mg/dL Labs and/or images reviewed: Labs reviewed by me, Image(s) reviewed by me Problem List/Assessment/Plan Problem List/Assessment/Plan Sepsis, likely due to appendicitis/ovarian torsion Possible acute appendicitis Acute abdominal pain, likely due to acute appendicitis Possible PID Surgery is on the board Consult OBGYN Check chlamydia, and gonorrhea Injections ciprofloxacin and metronidazole IV normal saline Ruled out ectopic , beta HCG is normal Vitamin-D deficiency, supplemented Vitamin B12 deficiency, supplement DIET: NPO DVT PROPHYLAXIS: Patient is ambulatory, no need for anticoagulant GI PROPHYLAXIS:: Protonix BOWEL REGIMEN: Colace 100 mg as needed CODE STATUS: Goal of care discussed for more than 27 minutes, full code DISPOSITION: Med surge Patient's status discussed with the patient at the moment the bedside. Case discussed with Dr. Telles Plan discussed with: Patient, Other (RN) My Orders My Orders Orders - NATHEN PURI RESDIAYSHA Procedure Category Date Status Time Metronidazole PHA 05/23/24 In Process 500mg/100ml (Flagyl 14:00 Ciprofloxacin PHA 05/23/24 In Process 400mg/200ml (Cipro Iv) 10:00 Date of Service: May 23, 2024 Billing Provider: KATHLEEN TODD MD Common Visit Codes: [id number] INP/OBS CARE(HIGH) NATHEN PURI RESDIENT May 23, 2024 17:29 KATHLEEN TODD MD May 24, 2024 09:15
[2024-05-23 20:00] VITALS: PULSE 97; RESP 18; O2SAT 100
[2024-05-23 21:00] VITALS: BP 94/56; PULSE 97; RESP 18; TEMP 97.2; O2SAT 100
[2024-05-23] MEDS: ERGOCALCIFEROL 50,000 UNIT(1.25MG) CAP PO SCH (21:27)
[2024-05-23] MEDS: CYANOCOBALAMIN (B-12) 1000 MCG/1 ML VIAL IM ONE (21:28)
[2024-05-24] VITALS (7 sets, daily range): BP systolic 100–118; BP diastolic 55–70; PULSE 92–104; RESP 15–17; TEMP 36.9; O2SAT 95–100
--- NOTE | 2024-05-24 09:03 | DVH ---
INDICATION: pain TECHNIQUE: Graded compression technique along with Multiple real-time sonographic images were obtain ed for evaluation of the right lower quadrant. FINDINGS: The appendix was not visualized. No free fluid or lymph nodes are seen on this exam. IMPRESSION: 1.Nonvisualization of the appendix, thus cannot exclude appendicitis.
[2024-05-24 09:07] LABS: Basophils # (auto) 0 10 ^3/uL (0-0.2); Basophils % (auto) 0.2 % (0.0-2.0); Eosinophils # (auto) 0.1 10 ^3/uL (0-0.8); Eosinophils % (auto) 0.8 % (0.0-7.0); Hematocrit 39.1 % (36.0-46.0); Hemoglobin 13.4 g/dL (12.2-16.2); Lymphocytes # (auto) 1.4 10 ^3/uL (0.4-5.4); Mean Corpuscular Hemoglobin 31.7 pg (28.0-32.0); Mean Corpuscular Hgb Conc. 34.3 g/dL (32.0-36.0); Mean Corpuscular Volume 92.4 fL (80.0-100.0); Monocytes # (auto) 0.6 10 ^3/uL (0-1.3); Monocytes % (auto) 6.1 % (0.0-12.0); Neutrophils # (auto) 7.7 10 ^3/uL (1.6-8.6); Neutrophils % (auto) 78.9 % (37.0-80.0); Nucleated Red Blood Cells % 0.1 %; Platelet Count (auto) 216 10^3/uL (140-450); Red Blood Cells 4.23 10^6/uL (4.0-5.20); Red Cell Distribution Width 12.6 % (11.8-14.3); White Blood Cell 9.8 10^3/uL (4.4-10.8)
--- NOTE | 2024-05-24 09:09 | DVH ---
INDICATION: PID TECHNIQUE: Multiple real-time grayscale transabdominal sonographic images along with color and duplex Doppler of the uterus and ovaries were obtained. COMPARISON: US PELVIC on DOS: 05/23/24 FINDINGS: The uterus measures 7.4 x 3.8 x 5.1 cm. The endometrial stripe measures 0.5 cm. The right ovary measures 3.1 x 1.9 x 2.4 cm. The left ovary measures 3.7 x 2.1 x 3.4 cm. Subsequent color and duplex Doppler interrogation of the ovaries demonstrated symmetric vascular flow to both ovaries, though this does not exclude the possibility of torsion due to the dual blood suppl y. IMPRESSION: 1. Grossly unremarkable pelvic ultrasound.
--- NOTE | 2024-05-24 09:10 | DVHINCON2 ---
DATE OF CONSULTATION: 05/24/2024 REASON FOR CONSULTATION: Rule out PID. HISTORY OF PRESENT ILLNESS: The patient is a 24-year-old 0, para 0, admitted for acute abdominal pain, right lower quadrant pain associated with some nausea. The patient has no appetite to eat. She reports having had intercourse approximately a month ago. She has one partner. Denies having any vaginal discharge, abnormal uterine bleeding. Pelvic ultrasound is essentially negative. Ultrasound of appendix does not show appendix. The patient had fever of 102 associated with some tachycardia. PAST MEDICAL HISTORY: None. PAST SURGICAL HISTORY: None. SOCIAL HISTORY: None. FAMILY HISTORY: None. OBSTETRIC AND GYNECOLOGIC HISTORY: Nulligravid. ALLERGIES: No known drug allergies. REVIEW OF SYSTEMS: CONSTITUTIONAL: Reports fever. No fatigue or malaise. RESPIRATORY: Denies cough, hemoptysis, or orthopnea. CARDIOVASCULAR: Denies chest pain. GASTROINTESTINAL: Positive for abdominal pain and nausea. GENITOURINARY: Denies abnormal vaginal bleeding, burning, dysuria or dyspareunia. NEUROLOGICAL: Denies dizziness, fainting. MUSCULOSKELETAL: Denies back pain, gout. ENDOCRINE: Denies excessive hunger or sweating. PSYCHIATRIC: Denies anxiety, bipolar. PHYSICAL EXAMINATION: VITAL SIGNS: Stable, afebrile at the time of this consultation. HEENT: Within normal limits. CARDIOVASCULAR: Regular rate and rhythm. LUNGS: Clear to auscultation. BREASTS: Symmetrical. No masses. ABDOMEN: Soft, localized right lower quadrant tenderness noted. No rigidity. No rebound. PELVIC: External genitalia within normal limits. No vaginal discharge noted. No cervical motion tenderness noted. Uterus normal in size. Adnexa nontender. EXTREMITIES: No clubbing, cyanosis or edema. IMPRESSION: * Right lower quadrant pain, does not appear to have clinical signs and symptoms of pelvic inflammatory disease. * Rule out appendicitis. * Urinary tract infection. RECOMMENDATION: IV fluid, antibiotic, repeat appendix ultrasound per Dr. Aceves. We will sign off. Thank you very much for this consultation. DO DESIREE Saucedo TID: [id number] RECEIPT: [id number]
[2024-05-24 09:28] LABS: Alanine Aminotransferase 14 U/L (7-40); Albumin 4.1 g/dL (3.2-4.8); Alkaline Phosphatase 70 U/L (46-116); Anion Gap 12 (5-15); Aspartate Aminotransferase 13 U/L (13-40); BUN/Creatinine Ratio 16.7 (10.0-20.0); Calcium 9.5 mg/dL (8.7-10.4); Potassium 3.7 mmol/L (3.5-5.1); Sodium 139 mmol/L (136-145)
[2024-05-24 09:29] LABS: Bilirubin, Total 1.2 mg/dL (0.2-1.0); Blood Urea Nitrogen 8 mg/dL (9-23); Carbon Dioxide 19 mmol/L (20-31); Chloride 108 mmol/L (98-107); Glucose 56 mg/dL (74-106); Total Protein 6.7 g/dL (5.7-8.2)
[2024-05-24] MEDS ORDERED: AUG875T PO (11:24)
--- NOTE | 2024-05-24 12:47 | DVHPN2 ---
Progress Note Date Seen: May 24, 2024 Has the PT tested + for MRSA If YES, has PT been informed?: No Medical Necessity Reason Pt with a Central, PICC or Fol: No Objective vital signs Vital Sign Date Time Temp Pulse Resp B/P (MAP) Pulse Ox O2 Delivery O2 Flow Rate FiO2 05/24/24 09:08 98.5 98 15 103/63 (76) 97 98.5 05/24/24 08:00 Room Air* 0 N/A Nasal Cannula* Total Intake and Output 05/23/24 05/23/24 05/24/24 15:00 23:00 07:00 Intake Total 1125 ml 100 ml 0 ml Balance 1125 ml 100 ml 0 ml medications Current Medications Medications Dose Ordered Sig/Timothy Route Start Time Stop Time Status Last Admin Dose Admin Morphine Sulfate 2 mg Q4HPRN PRN IV 05/23/24 04:30 Ondansetron HCl 4 mg Q6HPRN PRN IV 05/23/24 04:30 05/23/24 10:54 4 MG Acetaminophen 650 mg Q4HP PRN PO 05/23/24 06:45 Metronidazole 100 ml @ 100 mls/hr Q8HR IV 05/23/24 14:00 05/24/24 06:00 100 MLS/HR Ciprofloxacin 200 ml @ 200 mls/hr Q12HR IV 05/23/24 10:00 05/24/24 09:14 200 MLS/HR Ergocalciferol 50,000 unit Q7D PO 05/23/24 19:30 05/23/24 21:27 50,000 UNIT laboratory and microbiology Laboratory Tests 05/24/24 07:58 Test 05/24/24 07:58 Range/Units Serum Glucose 56 L 74-106 mg/dL Problem List/Assessment/Plan Problem List/Assessment/Plan 05/24/24 pain is gone, no nausea, no vomiting, abdomen non tender, repeat US negative , WBC normalized. No indication for surgical intervention, recall if needed, Plan discussed with: Patient, Other TARIK GRANT MD May 24, 2024 12:47
--- NOTE | 2024-05-24 15:54 | DVHDSRES ---
Discharge Summary Date of Admission Resident Creating Document: NATHEN PURI RESDIENT May 23, 2024 at 04:29 Date of Discharge: May 24, 2024 Admitting Diagnosis Right lower quadrant pain Labs/Diagnostic Data: Laboratory Results Test 05/24/24 07:58 05/23/24 09:23 05/23/24 08:45 05/23/24 04:45 White Blood Count 9.8 10^3/uL (4.4-10.8) Red Blood Count 4.23 10^6/uL (4.0-5.20) Hemoglobin 13.4 g/dL (12.2-16.2) Hematocrit 39.1 % (36.0-46.0) Mean Corpuscular Volume 92.4 fL (80.0-100.0) Mean Corpuscular Hemoglobin 31.7 pg (28.0-32.0) Mean Corpuscular Hemoglobin Concent 34.3 g/dL (32.0-36.0) Red Cell Distribution Width 12.6 % (11.8-14.3) Platelet Count 216 10^3/uL (140-450) Mean Platelet Volume 8.8 fL (6.9-10.8) Neutrophils (%) (Auto) 78.9 % (37.0-80.0) Lymphocytes (%) (Auto) 14.0 % (10.0-50.0) Monocytes (%) (Auto) 6.1 % (0.0-12.0) Eosinophils (%) (Auto) 0.8 % (0.0-7.0) Basophils (%) (Auto) 0.2 % (0.0-2.0) Neutrophils # (Auto) 7.7 10 ^3/uL (1.6-8.6) Lymphocytes # (Auto) 1.4 10 ^3/uL (0.4-5.4) Monocytes # (Auto) 0.6 10 ^3/uL (0-1.3) Eosinophils # (Auto) 0.1 10 ^3/uL (0-0.8) Basophils # (Auto) 0 10 ^3/uL (0-0.2) Nucleated Red Blood Cells 0.1 % Sodium Level 139 mmol/L (136-145) Potassium Level 3.7 mmol/L (3.5-5.1) Chloride Level 108 mmol/L (98-107) Carbon Dioxide Level 19 mmol/L (20-31) Anion Gap 12 (5-15) Blood Urea Nitrogen 8 mg/dL (9-23) Creatinine 0.48 mg/dL (0.550-1.02) Glomerular Filtration Rate Calc 137 mL/min (>90) BUN/Creatinine Ratio 16.7 (10.0-20.0) Serum Glucose 56 mg/dL (74-106) Calcium Level 9.5 mg/dL (8.7-10.4) Total Bilirubin 1.2 mg/dL (0.2-1.0) Aspartate Amino Transferase (AST) 13 U/L (13-40) Alanine Aminotransferase (ALT) 14 U/L (7-40) Alkaline Phosphatase 70 U/L (46-116) Total Protein 6.7 g/dL (5.7-8.2) Albumin 4.1 g/dL (3.2-4.8) Urine Opiates Screen Pos (NEGATIVE) Urine Fentanyl Screen Neg (NEGATIVE) Urine Barbiturates Screen Neg (NEGATIVE) Urine Phencyclidine Screen Neg (NEGATIVE) Urine Amphetamines Screen Neg (NEGATIVE) Urine Benzodiazepines Screen Neg (NEGATIVE) Urine Cocaine Screen Neg (NEGATIVE) Urine Cannabinoids Screen Neg (NEGATIVE) Prothrombin Time 12.8 sec (9.3-11.8) Prothrombin Time INR 1.23 (0.9-1.15) Activated Partial Thromboplast Time 30.4 SEC (24.5-34.5) Lactic Acid Level 0.9 mmol/L (0.4-2.0) Vitamin B12 Level 314 pg/mL (211-911) Vitamin D 25-Hydroxy 4.7 ng/mL (30.0-100) Beta HCG, Quantitative 1.5 mIU/mL (1.5-4.2) Test 05/22/24 22:26 05/22/24 22:19 Urine Color Light-yellow (Yellow) Urine Clarity Clear (Clear) Urine pH 7.0 (5.0-9.0) Urine Specific [place] 1.022 (1.001-1.035) Urine Protein Negative (Negative) Urine Ketones 1+ (Negative) Urine Blood Negative /uL (Negative) Urine Nitrite Negative (Negative) Urine Bilirubin Negative (Negative) Urine Urobilinogen Normal mg/dL (Negative) Urine Leukocyte Esterase 1+ /uL (Negative) Urine RBC 2 /hpf (0 - 4) Urine WBC 6 /hpf (0 - 5) Urine Squamous Epithelial Cells Few /hpf (<5) Urine Bacteria None seen /hpf (None Seen) Urine Glucose Normal mg/dL (Normal) Lipase 29 U/L (12-53) Other Laboratory Tests 05/24/24 07:58 Brief Hx & Hospital Course: The patient is a 24-year-old female with no significant past medical history who presented to the ED with a chief complaint of right lower quadrant pain since the morning. She reports a sudden onset of constant, severe right lower quadrant pain rated 9/10 in intensity, nonradiating, and associated with nausea but no vomiting. She does not report diarrhea. Her last menstrual period was two weeks ago, and she is currently in a relationship with a single partner. On admission, she had an elevated temperature of 102.3F, tachycardia, and an elevated red blood cell count with a left shift. Her Beta HCG was 1.5. She denies smoking, alcohol, and drug use, and does not use contraceptives. She has no past medical or surgical history and is not on any home medications. Based on the clinical presentation, the patient was suspect with the for possible appendicitis and UTI. CT scan showed no definitively appendicitis, surgery was consulted and evaluated the patient, recommended that the patient do not need surgery and appendicitis less likely. Ultrasound showed Left ovary appears enlarged with multiple follicles measuring up to 1.8 cm. Gynecology was consulted and recommended IV fluid, antibiotic. On 05/24, the patient was clinically and hemodynamically stable discharge plan discussed with the patient the patient was discharged. Discharge plan: Follow up with the PCP within 1 week of the discharge. Follow up with the discharge Clinic within 1 week after discharge. Tablet Augmentin 875 mg b.i.d. for 7 days Operations or Procedures [address] [address] Ph: [phone] DIAGNOSTIC IMAGING Diagnostic Imaging Report : [id number] Signed PATIENT: KIRSTEN OCAMPOCT: [id number] UNIT: [id number] : 2000 LOC: ER ROOM / BED: / AGE / SEX: 24 / F ADM STATUS: REG ER SERVICE [id number] ORDERING PHYSICIAN: BINTA LAYTON PAC PROCEDURE(s): ABPL - CT AB PEL WO CON-NO ORAL OR IV REASON: Right lower quadrant pain ORDER NUMBER(s): [id number], ACCESSION NUMBER(s): [id number] Exam: CT CT AB PEL WO CON-NO ORAL OR IV History: Right lower quadrant pain Comparison Study: None available at time of dictation. TECHNIQUE: Multidetector CT of the abdomen was performed from lung bases to pubic symphysis. Imaging was performed without IV contrast. Axial, coronal and sagittal multiplanar reformats were obtained from the axial data set by the technologist. Radiation Dose Information: CT Dose: CTDI volume is 5.53 mGy. Dose-length product is 301.99 mGy*cm FINDINGS: Evaluation of solid organs is limited due to lack of intravenous contrast use. Findings: Lung Bases: No acute or significant lung base finding. Normal heart size. No pleural or pericardial effusion. Liver: The liver is normal in size. No focal lesions. Gallbladder and Biliary Tree: Unremarkable Spleen: Unremarkable Pancreas: The pancreas is grossly normal in appearance. Adrenal Glands: Unremarkable Kidneys: Kidneys are grossly normal without calculi or hydronephrosis. Bladder: Grossly unremarkable for degree of distention. Bowel: The stomach is grossly normal in appearance. Small bowel and colon are normal in caliber and distribution. The appendix is not visualized; however, no secondary findings of acute appendicitis identified. Ascites: Absent Lymphadenopathy: No mesenteric, retroperitoneal or periportal lymphadenopathy. Abdominal Wall and Mesentery: Unremarkable. Vasculature: The visualized abdominal aorta is normal in size and caliber. Evaluation of abdominal and pelvic vessels is limited due to lack of intravenous contrast. Pelvic Organs: Unremarkable Musculoskeletal: No aggressive focal bony lesions, acute fractures or dislocation. Soft tissues: Unremarkable IMPRESSION: 1. No calcified gallstones. 2. No nephrolithiasis or hydronephrosis. 3. No free air or free fluid. 4. Appendix not definitively identified. 5. Radiation optimization: All CT scans at this facility use at least one of these dose optimization techniques: automated exposure control mA and/or kV adjustment per patient size (includes targeted exams where dose is matched to clinical indication) or iterative reconstruction. HS:Y ATED BY: TRESA DUBON Jr., DO DICTATED DATE/TIME: 05/23/24 0021 SIGNED BY: TRESA DUBON Jr., DO SIGNED DATE/TIME: 05/23/24 002 CC: [place] [id number] Ph: [phone] DIAGNOSTIC IMAGING Diagnostic Imaging Report : [id number] Signed PATIENT: MICHAEL OCAMPONACCT: [id number] UNIT: [id number] : 2000 LOC: ER ROOM / BED: / AGE / SEX: 24 / F ADM STATUS: REG ER SERVICE ORDERING PHYSICIAN: BINTA LAYTON PAC PROCEDURE(s): RTLQD - RIGHT LOWER QUAD REASON: Right lower quadrant ORDER NUMBER(s): [id number], ACCESSION NUMBER(s): [id number] ABDOMINAL ULTRASOUND CLINICAL HISTORY: Right lower quadrant TECHNIQUE: Multiple grayscale and color Doppler ultrasound images were obtained of the abdomen. WID: COMPARISON: CT abdomen pelvis from same day Findings/IMPRESSION: Appendix not visualized. No fluid collection or tenderness in the right lower quadrant. ATED BY: NIXON GAMA MD DICTATED DATE/TIME: 05/23/24136 SIGNED BY: NIXON GAMA MD SIGNED DATE/TIME: 05/23/24136 CC: Condition at Discharge: Good Final Diagnosis/Problems List Pelvic pain possibly due to UTI/gynecology source/GI Ruled out acute appendicitis/acute abdomen Sirs without organ damage Ruled out PID Ruled out sepsis UTI Ruled out ectopic Vitamin-D deficiency Vitamin B12 deficiency Ruled out ovarian torsion Discharge Disposition: Home Discharge Instruct/Medications Diet: Regular Activity: No Restrictions, As Tolerated Follow Up/Referral: Follow up with the PCP within 1 week of the discharge. Follow up with the Gynecology on outpatient basis. Medications: Tablet Augmentin 875 mg b.i.d. for 7 days Discharge Statement: "Patient was advised to return to the ER or call 911 if any headaches, dizziness, shortness of breath, chest pain, abdominal pain, bleeding, fevers, or worsening of medical condition. Patient was counseled about treatment plan, medications, possible side effects, patientverbalized understanding. All questions were answered to the best of my ability. This discharge took greater then 30 minutes in planning, reviewing documentation, counseling the patient, and discussing with other team members." ASSESSMENT ASSESSMENT Assessment Pelvic pain possibly due to UTI/gynecology source/GI Ruled out acute appendicitis/acute abdomen Sirs without organ damage Ruled out PID Ruled out sepsis UTI Ruled out ectopic Vitamin-D deficiency Vitamin B12 deficiency Ruled out ovarian torsion Date of Service: May 24, 2024 Billing Provider: KATHLEEN TODD MD Common Visit Codes: [id number]/OBS DISCH DAY >30min NATHEN PURI RESDIENT May 24, 2024 15:54 KATHLEEN TODD MD May 25, 2024 09:20
[2024-05-25 03:06] LABS: Chlamydia Trachomatis, NAA Negative (Negative); Neisseria gonorrhoeae, NAA Negative (Negative)
== END 2024-05-24 17:02 | disposition home or self-care (01) | DRG 463 ==
LOC: ER 21:53 → OVERFLOW 05-23 04:29 → WEST WING 05-23 16:36
PROVIDERS: ADMIT Student in an Organized Health Care Education/Training Program; ATTEND Student in an Organized Health Care Education/Training Program
DX: N39.0 Urinary tract infection, site not specified (principal); R65.10 Systemic inflammatory response syndrome (SIRS) of non-infectious origin without acute organ dysfunction; N73.9 Female pelvic inflammatory disease, unspecified; E55.9 Vitamin D deficiency, unspecified; E53.8 Deficiency of other specified B group vitamins; Z79.899 Other long term (current) drug therapy
CPT/HCPCS: 36415; 74176; 76705; 76856; 80053; 80307; 81001; 82306; 82607; 83605; 83690; 84702; 85025; 85610; 85730; 86256; 96361; 96365; G0378; J2405; J2543; J3490; Q0162